=== PATIENT | male | born 1955 | race Caucasian/White ===

== ENCOUNTER 2017-11-07 10:00 | Outpatient (RCR) | payer OTHER, SELFPAY | END 2017-11-07 10:30 | disposition home or self-care (01) | LOC: PT 10:00 | PROVIDERS: Family Provider Family Medicine; PCP Family Medicine; Visit Provider Orthopaedic Surgery | DX: S76.111D Strain of right quadriceps muscle, fascia and tendon, subsequent encounter (principal); M22.41 Chondromalacia patellae, right knee | CPT/HCPCS: 97014 ×3; 97110 ×3; 97161; G0283 ==

== ENCOUNTER → 2018-09-07 09:47 | Outpatient (CLI) | payer OTHER, SELFPAY ==
[2018-09-07 12:15] LABS: Absolute Lymphocyte Count 1.76 X10^3/ul (0.83-4.51); Absolute Neutrophil Count 1.7 X10^3/uL (2.0-7.7); Basophil# 0.03 X10^3/uL; Basophil% 0.7 % (0-1); Eosinophil# 0.35 X10^3/uL; Eosinophils% 8.1 % (0-5); Hematocrit 42.6 % (40-54); Hemoglobin 13.8 g/dl (13.0-16.5); Lymphocyte # 1.76 X10^3/ul (4.0); Lymphocyte % 40.6 % (19-41); Mean Corp Hgb Conc 32.4 g/gl (32-36); Mean Corpuscular Hgb 29.4 pg (27.0-32.0); Mean Corpuscular Volume 90.6 fL (80-94); Mean Platelet Vol. 10.2 fl (6.2-12.0); Monocyte# 0.49 X10^3/uL; Monocyte% 11.3 % (0-10); Neutrophil # 1.69 X10^3/uL (2.7-7.7); Neutrophil % 39.1 % (47-70); Platelet Count 201 K/mm3 (150-450); RBC Distribution Width CV 13.1 % (11.6-14.6); RBC Distribution Width SD 43.3 fl (35.1-43.9); White Blood Count 4.3 K/mm3 (4.4-11.0)
[2018-09-07 12:17] LABS: Color, Urine Yellow (Yellow); Glucose, Dipstick Normal (Normal); Ketone-Dipstick Negative (Negative); Leukocyte Esterase-Dipstick Negative /ul (Negative); Nitrite-Dipstick Negative (Negative); Occult Blood-Urine Negative /ul (Negative); Protein-Dipstick Negative (Negative); Urine Bilirubin Dipstick Negative (Negative); Urine Clarity Clear (Clear); Urine Urobilinogen Normal (Normal)
[2018-09-07 12:22] LABS: POSITIVE COUNT NO; POSITIVE DIFFERENTIAL NO; POSITIVE MORPHOLOGY NO
[2018-09-07 12:44] LABS: ALB/GLOB Ratio 1.2 RATIO (0.9-2.4); AST(SGOT) 23 U/L (15-37); Alanine Aminotransfer ALT/SGPT 32 U/L (16-61); Albumin, Serum 3.8 g/dL (3.2-5.0); Alkaline Phosphatase 85 U/L (45-117); Anion Gap 6 (5-15); BUN 20 mg/dL (7-18); BUN/Creat Ratio 18.9 RATIO (10-20); Calcium,Total 8.8 mg/dL (8.5-10.1); Chloride 104 mmol/L (98-107); Cholesterol 190 mg/dL (200); Creatinine, Serum 1.06 mg/dL (0.70-1.30); EST Glomerular Filtration Rate 75 mL/min (>60); Est Glom Filt Rate - Afr Amer 90 mL/min (>60); Globulin 3.2 g/dL (2.2-4.2); Glucose 78 mg/dL (74-106); High Density Lipoprotein 56 mg/dL; PSA,Total - Annual Screen 0.26 ng/mL (0.00-4.00); Potassium 4.7 mmol/L (3.5-5.1); Sodium Level 142 mmol/L (136-145); Triglycerides 116 mg/dL; Very Low Density Lipoprotein 23 mg/dL (5-40)
== END ==
PROVIDERS: Family Provider Family Medicine; PCP Family Medicine; Referring Provider Family Medicine; Visit Provider Family Medicine
DX: Z00.00 Encounter for general adult medical examination without abnormal findings (principal); Z12.5 Encounter for screening for malignant neoplasm of prostate; I10 Essential (primary) hypertension
CPT/HCPCS: 36415; 80053; 80061; 81002; 84153; 85025; G0103

== ENCOUNTER → 2019-09-22 11:08 | Outpatient (CLI) | payer MEDICARE, OTHER, SELFPAY ==
[2019-09-22 12:27] LABS: Absolute Lymphocyte Count 1.64 X10^3/uL (0.83-4.51); Absolute Neutrophil Count 1.6 X10^3/uL (2.0-7.7); Basophil# 0.03 X10^3/uL; Basophil% 0.8 % (0-1); Eosinophil# 0.19 X10^3/uL; Eosinophils% 4.8 % (0-5); Hematocrit 39.5 % (40-54); Hemoglobin 12.7 g/dL (13.0-16.5); Lymphocyte # 1.64 X10^3/ul (4.0); Lymphocyte % 41.7 % (19-41); Mean Corp Hgb Conc 32.2 g/dL (32-36); Mean Corpuscular Hgb 29.1 pg (27.0-32.0); Mean Corpuscular Volume 90.4 fL (80-94); Mean Platelet Vol. 9.7 fl (6.2-12.0); Monocyte# 0.46 X10^3/uL; Monocyte% 11.7 % (0-10); NRBC Flagged by Analyzer 0 % (0-5); Neutrophil % 40.7 % (47-70); Platelet Count 204 K/mm3 (150-450); RBC Distribution Width SD 42.9 fl (35.1-43.9); Red Blood Count 4.37 M/mm3 (4.6-6.2); White Blood Count 3.9 K/mm3 (4.4-11.0)
[2019-09-22 12:30] LABS: Color, Urine Yellow (Yellow); Glucose, Dipstick Normal (Normal); Ketone-Dipstick Negative (Negative); Leukocyte Esterase-Dipstick Negative /ul (Negative); Nitrite-Dipstick Negative (Negative); Occult Blood-Urine Negative /ul (Negative); Protein-Dipstick Negative (Negative); Urine Bilirubin Dipstick Negative (Negative); Urine Clarity Sl. Cloudy (Clear); Urine Urobilinogen Normal (Normal)
[2019-09-22 12:56] LABS: ALB/GLOB Ratio 1.3 RATIO (0.9-2.4); AST(SGOT) 22 U/L (15-37); Alanine Aminotransfer ALT/SGPT 30 U/L (16-61); Albumin, Serum 3.9 g/dL (3.2-5.0); Alkaline Phosphatase 77 U/L (45-117); Anion Gap 10 (5-15); BUN 22 mg/dL (7-18); BUN/Creat Ratio 19.3 RATIO (10-20); Calcium,Total 8.8 mg/dL (8.5-10.1); Chloride 104 mmol/L (98-107); Cholesterol 188 mg/dL (200); Creatinine, Serum 1.14 mg/dL (0.70-1.30); EST Glomerular Filtration Rate 68 mL/min (>60); Est Glom Filt Rate - Afr Amer 83 mL/min (>60); Globulin 3.1 g/dL (2.2-4.2); Glucose 81 mg/dL (74-106); High Density Lipoprotein 60 mg/dL; PSA,Total - Annual Screen 0.22 ng/mL (0.00-4.00); Potassium 4.4 mmol/L (3.5-5.1); Sodium Level 141 mmol/L (136-145); Triglycerides 78 mg/dL; Very Low Density Lipoprotein 16 mg/dL (5-40)
== END ==
PROVIDERS: Family Provider Family Medicine; PCP Family Medicine; Referring Provider Family Medicine; Visit Provider Family Medicine
DX: Z00.00 Encounter for general adult medical examination without abnormal findings (principal); Z12.5 Encounter for screening for malignant neoplasm of prostate
CPT/HCPCS: 36415; 80053; 80061; 81002; 84153; 85025; G0103

== ENCOUNTER → 2020-09-25 09:53 | Outpatient (CLI) | payer MEDICARE, OTHER, SELFPAY ==
[2020-09-25 12:25] LABS: Hematocrit 42.9 % (40-54); Hemoglobin 13.6 g/dL (13.0-16.5); Mean Corp Hgb Conc 31.7 g/dL (32-36); Mean Corpuscular Hgb 29.2 pg (27.0-32.0); Mean Corpuscular Volume 92.1 fL (80-94); Mean Platelet Vol. 10.2 fl (6.2-12.0); Platelet Count 223 K/mm3 (150-450); RBC Distribution Width SD 43.7 fl (35.1-43.9); Red Blood Count 4.66 M/mm3 (4.6-6.2); White Blood Count 4.6 K/mm3 (4.4-11.0)
[2020-09-25 13:24] LABS: ALB/GLOB Ratio 1.2 RATIO (0.9-2.4); AST(SGOT) 23 U/L (15-37); Alanine Aminotransfer ALT/SGPT 28 U/L (16-61); Albumin, Serum 3.9 g/dL (3.2-5.0); Alkaline Phosphatase 98 U/L (45-117); Anion Gap 4 (5-15); BUN 19 mg/dL (7-18); BUN/Creat Ratio 16.8 RATIO (10-20); Calcium,Total 9.3 mg/dL (8.5-10.1); Chloride 107 mmol/L (98-107); Cholesterol 192 mg/dL (200); Creatinine, Serum 1.13 mg/dL (0.70-1.30); EST Glomerular Filtration Rate 69 mL/min (>60); Est Glom Filt Rate - Afr Amer 83 mL/min (>60); Globulin 3.2 g/dL (2.2-4.2); Glucose 92 mg/dL (74-106); High Density Lipoprotein 66 mg/dL; PSA,Total - Annual Screen 1.06 ng/mL (0.00-4.00); Potassium 4.3 mmol/L (3.5-5.1); Protein, Total 7.1 g/dL (6.4-8.2); Sodium Level 141 mmol/L (136-145); Triglycerides 105 mg/dL; Very Low Density Lipoprotein 21 mg/dL (5-40)
== END ==
PROVIDERS: PCP Family Medicine; Visit Provider Family Medicine
DX: Z00.00 Encounter for general adult medical examination without abnormal findings (principal); I10 Essential (primary) hypertension; Z12.5 Encounter for screening for malignant neoplasm of prostate
CPT/HCPCS: 36415; 80053; 80061; 84153; 85027; G0103

== ENCOUNTER 2020-11-25 14:50 | Inpatient (IN) | payer MEDICARE, OTHER, SELFPAY ==
[2020-11-25 14:50] VITALS: BP 169/88; PULSE 77; RESP 18; TEMP 35.9; O2SAT 99; BMI 25.4
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
[2020-11-25] MEDS: Morphine 4 MG/ML Syringe IV ×2 (15:14→16:46)
[2020-11-25] MEDS: Ondansetron 4 MG/2 ML Vial IV (15:14)
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
--- NOTE | 2020-11-25 15:30 | EKG12_ITS ---
Test Reason : LOWER EXTREM Blood Pressure : / mmHG Vent. Rate : 079 BPM Atrial Rate : 079 BPM P-R Int : 150 ms QRS Dur : 096 ms QT Int : 404 ms P-R-T Axes : 064 051 046 degrees QTc Int : 463 ms Sinus rhythm with Premature atrial complexes in a pattern of bigeminy Otherwise normal ECG Confirmed by SYED BERMUDEZ, PETER ([id number]), news editor LUIS AGUILAR ([id number]) on 11/27/2020 10:27:56 AM Referred By: BRENDA Confirmed By:PETER LYNCH MD
[2020-11-25 15:51] LABS: Absolute Lymphocyte Count 1.68 X10^3/uL (0.83-4.51); Absolute Neutrophil Count 5.8 X10^3/uL (2.0-7.7); Basophil# 0.04 X10^3/uL; Basophil% 0.5 % (0-1); Eosinophil# 0.16 X10^3/uL; Eosinophils% 1.9 % (0-5); Hematocrit 40.8 % (40-54); Hemoglobin 13.1 g/dL (13.0-16.5); Lymphocyte # 1.68 X10^3/ul (4.0); Lymphocyte % 20.1 % (19-41); Mean Corp Hgb Conc 32.1 g/dL (32-36); Mean Corpuscular Volume 90.5 fL (80-94); Mean Platelet Vol. 9.5 fl (6.2-12.0); Monocyte# 0.62 X10^3/uL; Monocyte% 7.4 % (0-10); NRBC Flagged by Analyzer 0 % (0-5); Neutrophil # 5.81 X10^3/uL (2.7-7.7); Neutrophil % 69.6 % (47-70); Platelet Count 221 K/mm3 (150-450); RBC Distribution Width SD 43.2 fl (35.1-43.9); Red Blood Count 4.51 M/mm3 (4.6-6.2); White Blood Count 8.4 K/mm3 (4.4-11.0)
[2020-11-25 15:55] LABS: International Normalized Ratio 1.1; Partial Thromboplast Time 25.2 Seconds (24.1-36.2); Prothrombin Time (Protime)PT. 13.8 SECONDS (11.7-14.9)
[2020-11-25 16:01] LABS: Anion Gap 5 (5-15); BUN 23 mg/dL (7-18); BUN/Creat Ratio 18.7 RATIO (10-20); Calcium,Total 9.2 mg/dL (8.5-10.1); Chloride 106 mmol/L (98-107); Creatinine, Serum 1.23 mg/dL (0.70-1.30); EST Glomerular Filtration Rate 62 mL/min (>60); Est Glom Filt Rate - Afr Amer 76 mL/min (>60); Estimated Creatinine Clearance 62.92 ml/min; Glucose 100 mg/dL (74-106); Potassium 4.2 mmol/L (3.5-5.1); Sodium Level 140 mmol/L (136-145)
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
--- NOTE | 2020-11-25 16:49 | NURSING ---
MED SURG JOPPERI HIP FX
[2020-11-25 16:50] VITALS: BP 155/82; PULSE 85; RESP 16; O2SAT 98
[2020-11-25 16:52] VITALS: BP 155/82; PULSE 65; RESP 16; TEMP 36.9; O2SAT 97
[2020-11-25 17:28] VITALS: BMI 25.9
[2020-11-25 17:36] VITALS: BMI 26.0
[2020-11-25 19:42] VITALS: BP 160/76; PULSE 88; RESP 16; TEMP 37.2; O2SAT 96
[2020-11-25] MEDS: oxyCODONE 5 MG Tablet 10 MG PO (19:46)
[2020-11-25 20:37] VITALS: BP 151/65; PULSE 73; RESP 15; TEMP 37.2; O2SAT 94; BMI 25.8
[2020-11-25 22:00] VITALS: RESP 15
[2020-11-25] MEDS: Morphine 2 MG/ML Syringe IV (22:43)
[2020-11-25] MEDS: 0.9% Saline Lock 10 ML Syringe IV (22:46)
[2020-11-26] VITALS (14 sets, daily range): BP systolic 116–170; BP diastolic 38–70; PULSE 68–83; RESP 15–18; TEMP 36.2–37.2; O2SAT 94–97; BMI 26.0
[2020-11-26] MEDS: 0.9% Normal Saline 1,000 ML 150 ML IV (01:00)
[2020-11-26] MEDS: Morphine 2 MG/ML Syringe IV ×2 (02:22→07:16)
--- NOTE | 2020-11-26 04:37 | NURSING ---
PT REPORTS THE OXYIR WAS NOT EFFECTIVE AT ALL. PT PREFERS MORPHINE, REPORTS IT IS EFFECTIVE FOR LEFT HIP PAIN
[2020-11-26 04:59] LABS: Absolute Lymphocyte Count 1.28 X10^3/uL (0.83-4.51); Absolute Neutrophil Count 5.8 X10^3/uL (2.0-7.7); Basophil# 0.03 X10^3/uL; Basophil% 0.4 % (0-1); Eosinophil# 0.08 X10^3/uL; Hematocrit 37.3 % (40-54); Hemoglobin 12.1 g/dL (13.0-16.5); Lymphocyte # 1.28 X10^3/ul (4.0); Lymphocyte % 16.4 % (19-41); Mean Corp Hgb Conc 32.4 g/dL (32-36); Mean Corpuscular Hgb 28.7 pg (27.0-32.0); Mean Corpuscular Volume 88.6 fL (80-94); Mean Platelet Vol. 9.3 fl (6.2-12.0); Monocyte# 0.58 X10^3/uL; Monocyte% 7.4 % (0-10); NRBC Flagged by Analyzer 0 % (0-5); Neutrophil % 74.5 % (47-70); Platelet Count 189 K/mm3 (150-450); RBC Distribution Width CV 12.9 % (11.6-14.6); RBC Distribution Width SD 42.1 fl (35.1-43.9); Red Blood Count 4.21 M/mm3 (4.6-6.2); White Blood Count 7.8 K/mm3 (4.4-11.0)
[2020-11-26 05:12] LABS: Anion Gap 5 (5-15); BUN 21 mg/dL (7-18); BUN/Creat Ratio 18.9 RATIO (10-20); Calcium,Total 8.2 mg/dL (8.5-10.1); Chloride 104 mmol/L (98-107); Creatinine, Serum 1.11 mg/dL (0.70-1.30); EST Glomerular Filtration Rate 70 mL/min (>60); Est Glom Filt Rate - Afr Amer 85 mL/min (>60); Estimated Creatinine Clearance 69.72 ml/min; Glucose 105 mg/dL (74-106); Potassium 4.3 mmol/L (3.5-5.1); Sodium Level 137 mmol/L (136-145)
--- NOTE | 2020-11-26 07:17 | NURSING ---
PT PREFERS MORPHINE FOR LEFT HIP PAIN. REPORTS THE OXYIR IS NOT EFFECTIVE.
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
[2020-11-26] MEDS: Cefazolin 2 GM in 0.9% Normal Saline 100 ML IV (07:55)
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
[2020-11-26] MEDS: Lactated Ringers 1,000 ML 100 ML IV (10:00)
[2020-11-26] MEDS: Cefazolin 1 GM/50 ML BAG IV ×2 (10:15→17:50)
[2020-11-26] MEDS: Lactated Ringers 1,000 ML 75 ML IV ×2 (13:55→16:55)
[2020-11-26] MEDS: proMETHazine 25 MG Tablet PO (13:55)
[2020-11-26] MEDS: Acetaminophen 500 MG Tablet 1000 MG PO ×2 (13:56→21:57)
[2020-11-26] MEDS: Losartan Potassium 50 MG Tablet PO (13:58)
--- NOTE | 2020-11-26 16:03 | PN_ITS ---
Patient Problems: Active and Suspected Problems (Last Updated 11/25/20 @ 16:[address] Edis Chavez, DO) Hip fracture (Acute) Subjective: Patient was seen and examined today, he underwent surgery today for his left hip fracture, patient underwent a left hip hemiarthroplasty. Postop patient is complaining of some nausea but is overall doing well. - Physical Exam Vitals/I&O's: Vital Signs Temp Pulse Resp BP Pulse Ox 98.0 F 79 18 134/63 H 97 11/26/20 14:39 11/26/20 14:39 11/26/20 14:39 11/26/20 14:39 11/26/20 14:39 Oxygen Delivery Method Room Air Weight: 84.1 kg Body Mass Index (BMI) 25.8 Intake and Output for Last 24 Hours 11/24/20 11/25/20 11/26/20 23:59 23:59 23:59 Intake Total 2071.67 / 2071.67 Output Total 1250 / 1250 Balance 821.67 / 821.67 General: Alert, Oriented x3, Cooperative, No apparent distress, Well developed HEENT: Atraumatic, PERRLA, EOMI, Normocephalic Oral: Moist Mucosa Neck: Supple, No JVD, Trachea Midline, Thyroid Normal Size and Texture Lungs: Clear to auscultation, Normal air movement, No rhonchi, No wheeze, No rales Cardiovascular: Regular rate, Regular Rhythm, Normal S1, Normal S2, No murmurs, PMI Normal, No rub noted, No Gallop Abdomen: Bowel Sounds Present, Soft, Non Tender, Non-Distended Extremities: No clubbing, No cyanosis, Capillary Refill Less than 3 Seconds Skin: No rashes, No breakdown Neurological: Cranial nerves II-XII grossly intact, Neuro grossly intact, Sens ory exam intact to light touch and pain, Coordination normal Psych/Mental Status: Normal Affect, Appropriate, Alert and oriented to time, place, person, mood and affect Microbiology Past 72 Hours 11/25/20 15:38 Mucosa - Nose SARS-CoV-2 Antigen (Rapid) - Final Laboratory Results 11/26/20 04:35: WBC 7.8, RBC 4.21 L, Hgb 12.1 L, Hct 37.3 L, MCV 88.6, MCH 28.7, MCHC 32.4, RDW Std Deviation 42.1, RDW Coeff of Jose 12.9, Plt Count 189, MPV 9.3, Immature Gran % (Auto) 0.300, Neut % (Auto) 74.5 H, Lymph % (Auto) 16.4 L, [place] % (Auto) 7.4, Eos % (Auto) 1.0, Baso % (Auto) 0.4, Absolute Neuts (auto) 5.8, Absolute Lymphs (auto) 1.28, Nucleated RBC % 0 11/26/20 04:35: Sodium 137, Potassium 4.3, Chloride 104, Carbon Dioxide 28.0, Anion Gap 5, BUN 21 H, Creatinine 1.11, Estim Creat Clear Calc 69.72, Est GFR (MDRD) Af Amer 85, Est GFR (MDRD) Non-Af 70, BUN/Creatinine Ratio 18.9, Glucose 105, Calcium 8.2 L 11/26/20 04:35: Blood Type O POSITIVE, Antibody Screen NEGATIVE Current Medications Acetaminophen (Acetaminophen 500 Mg Tablet) 1,000 mg PO Q8 [facility] Last Admin: 11/26/20 13:56 Dose: 1,000 mg Documented by: Apixaban (Apixaban 2.5 Mg Tablet) 2.5 mg PO BID [facility] Hydromorphone HCl (Hydromorphone 0.5 Mg/0.5 Ml Syringe) 0.5 mg IV Q2H PRN PRN PRN Reason: Pain Score 6-10 Cefazolin Sodium () 1 gm in 50 mls @ 100 mls/hr IV Q8H [facility] Stop: 11/27/20 02:29 Last Infusion: 11/26/20 10:45 Dose: Infused Documented by: Lactated Ringer's () 1,000 mls @ 100 mls/hr IV .Q10H [facility] Last Admin: 11/26/20 13:55 Dose: 75 mls/hr Documented by: Ketorolac Tromethamine (Ketorolac 15 Mg/Ml Vial) 15 mg IV Q6H PRN PRN PRN Reason: Pain Score 1-5 Stop: 11/28/20 09:36 Losartan Potassium (Losartan Potassium 50 Mg Tablet) 50 mg PO DAILY [facility] Last Admin: 11/26/20 13:58 Dose: 50 mg Documented by: Ondansetron HCl (Ondansetron 4 Mg/2 Ml Vial) 4 mg IV Q6H PRN PRN PRN Reason: NAUSEA/VOMITING Oxycodone HCl (Oxycodone 5 Mg Tablet) 5 - 10 mg PO Q4H PRN PRN PRN Reason: Pain Score 4-10 Senna/Docusate Sodium (Senna/Docusate Sodium 1 Tablet) 2 tablet PO BID [facility] Sodium Chloride (0.9% Saline Lock 10 Ml Syringe) 10 - 40 ml IV UD PRN PRN Reason: SALINE FLUSH Last Admin: 11/25/20 22:46 Dose: 10 ml Documented by: Medical Necessity - Tobacco Use Smoking Status: Never smoker Tobacco Use: Non-smoker Assessment/Plan All Active Problems (Last Updated 11/25/20 @ 16:[address] Edis Chavez, DO) Hip fracture (Acute) #1 left hip femoral neck fracture-postop day 0 left hip King arthroplasty- patient will be seen by PT and OT, he plans on being discharged to home when stable. Inpatient E&M: 30770 Subs Hosp L2
[2020-11-26] MEDS: Ondansetron 4 MG/2 ML Vial IV (17:29)
[2020-11-26] MEDS: APIXABAN 2.5 MG TABLET PO (21:56)
[2020-11-26] MEDS: Senna/Docusate Sodium 1 Tablet 2 TABLET PO (21:58)
[2020-11-27] MEDS: Cefazolin 1 GM/50 ML BAG IV (02:29)
[2020-11-27 03:00] VITALS: BMI 26.0
[2020-11-27 03:43] VITALS: BP 121/56; PULSE 66; RESP 15; TEMP 37.1; O2SAT 95
[2020-11-27 04:00] VITALS: RESP 15
[2020-11-27 04:57] LABS: Hematocrit 32.5 % (40-54); Hemoglobin 10.7 g/dL (13.0-16.5); Mean Corp Hgb Conc 32.9 g/dL (32-36); Mean Corpuscular Hgb 29.2 pg (27.0-32.0); Mean Corpuscular Volume 88.6 fL (80-94); Mean Platelet Vol. 9.5 fl (6.2-12.0); Platelet Count 166 K/mm3 (150-450); RBC Distribution Width CV 12.7 % (11.6-14.6); RBC Distribution Width SD 41.3 fl (35.1-43.9); Red Blood Count 3.67 M/mm3 (4.6-6.2); White Blood Count 8.7 K/mm3 (4.4-11.0)
[2020-11-27 05:10] LABS: Anion Gap 5 (5-15); BUN 18 mg/dL (7-18); Calcium,Total 7.7 mg/dL (8.5-10.1); Chloride 104 mmol/L (98-107); Creatinine, Serum 1.06 mg/dL (0.70-1.30); EST Glomerular Filtration Rate 74 mL/min (>60); Est Glom Filt Rate - Afr Amer 90 mL/min (>60); Estimated Creatinine Clearance 73.01 ml/min; Glucose 95 mg/dL (74-106); Potassium 4.2 mmol/L (3.5-5.1); Sodium Level 136 mmol/L (136-145)
[2020-11-27] MEDS: Acetaminophen 500 MG Tablet 1000 MG PO (05:40)
[2020-11-27 07:48] VITALS: BP 140/62; PULSE 67; RESP 16; TEMP 36.7; O2SAT 98
--- NOTE | 2020-11-27 07:54 | PCM.PN.ORT ---
Patient Problems: Active and Suspected Problems (Last Updated 11/25/20 @ 16:[address] Edis Chavez, DO) Hip fracture (Acute) Subjective: doing well pain controlled. c/o dorsum left foot pain. also requesting food as he has not progressed from clear liquids. - Physical Exam Vitals/I&O's: Vital Signs Temp Pulse Resp BP Pulse Ox 98.0 F 67 16 140/62 H 98 11/27/20 07:48 11/27/20 07:48 11/27/20 07:48 11/27/20 07:48 11/27/20 07:48 Oxygen Delivery Method Room Air Weight: 185 lb 6.54 oz Body Mass Index (BMI) 25.8 Intake and Output for Last 24 Hours 11/25/20 11/26/20 11/27/20 23:59 23:59 23:59 Intake Total 3046.67 / 3046.67 1500 / 1500 Output Total 1974 1300 / 1300 Balance 1071.67 / 1071.67 200 / 200 General: Alert, Oriented x3, Cooperative, No apparent distress Extremities: - - Hip dressing clean dry and intact compartments soft neurovascular intact left lower extremity no ecchymosis or swelling dorsum of or plantar gray tender to palpation over fourth metatarsal Microbiology Past 72 Hours 11/25/20 15:38 Mucosa - Nose SARS-CoV-2 Antigen (Rapid) - Final Laboratory Results 11/27/20 04:35: WBC 8.7, RBC 3.67 L, Hgb 10.7 L, Hct 32.5 L, MCV 88.6, MCH 29.2, MCHC 32.9, RDW Std Deviation 41.3, RDW Coeff of Jose 12.7, Plt Count 166, MPV 9.5 11/27/20 04:35: Sodium 136, Potassium 4.2, Chloride 104, Carbon Dioxide 27.0, Anion Gap 5, BUN 18, Creatinine 1.06, Estim Creat Clear Calc 73.01, Est GFR (MDRD) Af Amer 90, Est GFR (MDRD) Non-Af 74, BUN/Creatinine Ratio 17.0, Glucose 95, Calcium 7.7 L Current Medications Acetaminophen (Acetaminophen 500 Mg Tablet) 1,000 mg PO Q8 [facility] Last Admin: 11/27/20 05:40 Dose: 1,000 mg Documented by: Apixaban (Apixaban 2.5 Mg Tablet) 2.5 mg PO BID [facility] Last Admin: 11/26/20 21:56 Dose: 2.5 mg Documented by: Hydromorphone HCl (Hydromorphone 0.5 Mg/0.5 Ml Syringe) 0.5 mg IV Q2H PRN PRN PRN Reason: Pain Score 6-10 Lactated Ringer's () 1,000 mls @ 100 mls/hr IV .Q10H [facility] Last Infusion: 11/27/20 06:15 Dose: Infused Documented by: Ketorolac Tromethamine (Ketorolac 15 Mg/Ml Vial) 15 mg IV Q6H PRN PRN PRN Reason: Pain Score 1-5 Stop: 11/28/20 09:36 Losartan Potassium (Losartan Potassium 50 Mg Tablet) 50 mg PO DAILY [facility] Last Admin: 11/26/20 13:58 Dose: 50 mg Documented by: Ondansetron HCl (Ondansetron 4 Mg/2 Ml Vial) 4 mg IV Q6H PRN PRN PRN Reason: NAUSEA/VOMITING Last Admin: 11/26/20 17:29 Dose: 4 mg Documented by: Oxycodone HCl (Oxycodone 5 Mg Tablet) 5 - 10 mg PO Q4H PRN PRN PRN Reason: Pain Score 4-10 Senna/Docusate Sodium (Senna/Docusate Sodium 1 Tablet) 2 tablet PO BID [facility] Last Admin: 11/26/20 21:58 Dose: 2 tablet Documented by: Sodium Chloride (0.9% Saline Lock 10 Ml Syringe) 10 - 40 ml IV UD PRN PRN Reason: SALINE FLUSH Last Admin: 11/25/20 22:46 Dose: 10 ml Documented by: Medical Necessity - Tobacco Use Smoking Status: Never smoker Tobacco Use: Non-smoker Assessment/Plan All Active Problems (Last Updated 11/25/20 @ 16:[address] Edis Chavez, DO) Hip fracture (Acute) PT OT weightbearing as tolerated left lower extremity Eliquis 2.5 mg twice daily for 3 weeks postop Oxycodone Rx will be sent with Roxannequviki to [facility] pharmacy Ok for discharge from orthopedic standpoint to home but will need social service to arrange outpatient physical therapy Dressing to stay clean dry and intact for 72 hours postop then may remove prior to first shower and clean with antibacterial soap and shower with warm water and reapply dry dressing daily. Follow-up in office 2 weeks Ice to left foot if symptoms worsen we will reevaluate
--- NOTE | 2020-11-27 08:00 | DCINST_ITS ---
Discharge Diet: No Restrictions Weight Bearing Status: Weight bearing as tolerated Keep extremity elevated above heart level: Operative Extremity Call your doctor if you observe: Shortness of breath Additional Instructions: Do not shower 72hrs. Begin daily showering warm water antibacterial soap postop day #3( 72hrs Post-operatively) and then daily. Leave the dressing on for 72 hours postoperatively then may remove prior to first shower and change dressing daily after this until no drainage for 2 consecutive days then may leave open to air. Follow hip precautions that were reviewed in hospital. Wear compression stockings, may remove at night. Start out patient physical therapy as directed in hospital. Follow prescriptions instructions do not take any other pain medication or differ dosing without consulting your physician. Do not take oral NSAIDs until blood thinner has been completed , then may begin the day after completion if needed . Call Dr. Lemos's office with any concerns. Allergies/Adverse Reactions: Allergies No Known Allergies Allergy (Verified 11/25/20 14:52) Medications to take at Discharge Valsartan [Diovan] 160 mg QHS 11/25/20 Acetaminophen [Tylenol Extra Strength] 1,000 mg PO Q6H PRN #100 tab 11/27/20 Apixaban [Eliquis] 2.5 mg PO BID #42 tab 11/27/20 Oxycodone [Oxyir] 5 mg PO Q4H PRN PRN #60 tablet 11/27/20 The following prescriptions were given: Apixaban [Eliquis] 2.5 mg PO BID #42 tab Transmission Status: Pending to [facility] Oxycodone [Oxyir] 5 mg PO Q4H PRN PRN #60 tablet PRN Reason: Pain Score 6-10 Transmission Status: Sent to [facility] Acetaminophen [Tylenol Extra Strength] 1,000 mg PO Q6H PRN #100 tab Transmission Status: Pending to [facility] Primary Care Physician: Stephane Silva MD [Primary Care Provider] - Test Results: Test results from this visit will be discussed in further detail at your follow- up appointment, if applicable. Please Follow Up With: Jeff Lemos DO When: 2 weeks
[2020-11-27] MEDS: Senna/Docusate Sodium 1 Tablet 2 TABLET PO (09:03)
[2020-11-27] MEDS: Losartan Potassium 50 MG Tablet PO (09:03)
[2020-11-27] MEDS: APIXABAN 2.5 MG TABLET PO (09:03)
--- NOTE | 2020-11-27 09:50 | CASEMGMT ---
TRISTAN HARO Face to Face with patient for initial transition planning/care coordination assessment. TRISTAN HARO introduced self and role at [facility]. Patient sitting in chair, alert and oriented. Patient willing to participate in assessment and is able to answer all questions appropriately. Care providers, pharmacy, and demographics verified. Patient wishes to discharge home and have outpatient therapy scheduled at [facility]. Patient states he has no further needs or concerns at this time. CM to follow for discharge planning needs that may arise. PCP: Ricardo Specialists: more Lemos Pharmacy: [facility] Insurance: [facility], Prescription Benefit: yes Living Will/HPOA: yes, Sheba Pinto LNOK: Living Arrangements: Patient lives with in a ranch styler home with 3 steps and grab bar to enter the home. Patient states he was independent at home prior to admission. Transportation: DME/HHC: Patient states has gotten him a walker and shower chair at home. Patient requesting [facility] for outpatient therapy. TRISTAN HARO call [facility] and scheduled patient for 11/28/2020 1000. TRISTAN HARO updated patient with appt. Disposition Plan: Patient to discharge home with family support and follow-up plans in place. Amanda MARTINEZ, RN, CM
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
--- NOTE | 2020-11-27 10:44 | PCM.DC ---
- Discharge Diagnoses Current Active Problems: Current Active and Chronic Problems (Last Updated 11/25/20 @ 16:[address] Edis Chavez DO) Hip fracture (Acute) You will use the following diet at home:: No restrictions Your food should be the consistency of: Regular Your liquids should be the consistency of: Regular/Thin Discharge Activity: May not drive while taking narcotic pain medications., Use Walker, - - Okay to shower 72 hours after surgery Weight Bearing Status: Weight bearing as tolerated Keep extremity elevated above heart level: Operative Extremity Call your doctor if you observe: Shortness of breath Allergies/Adverse Reactions: Allergies No Known Allergies Allergy (Verified 11/25/20 14:52) Medications to take at Discharge Valsartan [Diovan] 160 mg QHS 11/25/20 Acetaminophen [Tylenol Extra Strength] 1,000 mg PO Q6H PRN #100 tab 11/27/20 Apixaban [Eliquis] 2.5 mg PO BID #42 tab 11/27/20 Apixaban [Eliquis] 2.5 mg PO BID #42 tab 11/27/20 Oxycodone [Oxyir] 5 - 10 mg PO Q4H PRN PRN #20 tablet 11/27/20 Oxycodone [Oxyir] 5 mg PO Q4H PRN PRN #60 tab 11/27/20 The following prescriptions were given: Apixaban [Eliquis] 2.5 mg PO BID #42 tab Transmission Status: Received by [facility] Oxycodone [Oxyir] 5 mg PO Q4H PRN PRN #60 tab PRN Reason: Pain Score 6-10 Transmission Status: Received by [facility] Acetaminophen [Tylenol Extra Strength] 1,000 mg PO Q6H PRN #100 tab Transmission Status: Received by [facility] Primary Care Physician: Stephane Silva MD [Primary Care Provider] - Please follow up with your Primary Care Physician in: As needed Test Results: Test results from this visit will be discussed in further detail at your follow-up appointment, if applicable. Please Follow Up With: Jeff Lemos DO When: 2 weeks Please Follow Up With: [facility] When: Friday
[2020-11-27 10:47] VITALS: BMI 26.0
[2020-11-27 12:08] VITALS: BP 137/66; PULSE 70; RESP 18; TEMP 36.7; O2SAT 98
== END 2020-11-27 12:45 | disposition home or self-care (01) | DRG 522 ==
LOC: ED 15:11 → MS3 16:59
PROVIDERS: Orthopaedic Surgery; Emergency Provider Emergency Medicine; PCP Family Medicine; Visit Provider Internal Medicine
PROC: 0SRS0JZ Replacement of Left Hip Joint, Femoral Surface with Synthetic Substitute, Open Approach (ICD-10-PCS; CPT 27125; principal; 2020-11-26 08:00)
DX: S72.012A Unspecified intracapsular fracture of left femur, initial encounter for closed fracture (principal); S51.812A Laceration without foreign body of left forearm, initial encounter; V18.4XXA Pedal cycle driver injured in noncollision transport accident in traffic accident, initial encounter; Y93.55 Activity, bike riding; Y92.89 Other specified places as the place of occurrence of the external cause; I10 Essential (primary) hypertension
CPT/HCPCS: 71045; 73502; 80048; 85025; 85027; 85610; 85730; 86850; 86900; 86901; 87426; 93005; 97110; 97116; 97162; 97166; 97530; 97535; 99251; 99285; C1776; J7030; J7120; A4216; G0463; J2405

== ENCOUNTER 2020-12-26 11:00 | Outpatient (RCR) | payer MEDICARE, OTHER, SELFPAY ==
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
--- NOTE | 2020-12-26 14:57 | HP.PTREVAL_ITS ---
Dr. Jeff Lemos, DO, It has been my pleasure to treat SILVIO MAI over the last 9 visits for L hip hemiarhtroplasty. Please see the progress note below for an update on the physical therapy plan of care! Subjective: Pt. reports being 90% better overall. He has been able to ride his stationary bike for upto 40 min with no issues post PT. Pt. does report some tightness in his hip flexor region. He is walking without AD, with minial issues. He did have some mild soreness when he twisted hi leg getting into his car yesterday causing him to be a little sore today 11/26. Objective/Function: Overall Gene is doing well. Pt. has good ROM, he is back to riding a stationary bike without issues, and has improved strength. ROM: L hip- flexion 90deg mild tightness, HS length is 85deg, hip extension 15deg., abd 45deg, Did not test ER/IR. PT. has good equal squat mechanics, partial squating. MMT: 4+/5 throughout hip, 5/5 with rest of his strength of his LLE. Core fair. GAIT: Pt. ambulates without AD with good step length, he did have some initial antalgic pattern during L stance phase, but improved as his gait progressed. STAIRS: reciprocal pattern without use of AD. Plan Plan: Pt. is doing very well. He is to trial exercises on his own at this point in time. Pt. instructed to continue riding the stationary bike with increasing resistance and glute max/med strenthening. Pt. consents. I will keep the case open for a few weeks in case patient requires further PT. If I do not hear from him over the next few weeks I will DC back to physician. Goals Goal 1:: LTG: Pt. to be I with HEP. Goal Time Frame: 4-6 Weeks Goal Progress: Goal Met Goal 2:: STG: Pt. to sleep without increase in symptoms. Goal Time Frame: 2-4 Weeks Goal Progress: Goal Met Goal 3:: LTG: Pt. to have L hip AROM to 90deg flexion, 45deg abd and 10deg extension without increase in symptoms. Goal Time Frame: 4-6 Weeks Goal Progress: Goal Met Goal 4:: LTG: Pt. to ambulate with LRD with normal gait without increase in symptoms. Goal Time Frame: 4-6 Weeks Goal Progress: Goal Met Goal 5:: LTG: Pt. to complete all ADLs without increase in symptoms. Goal Time Frame: 4-6 Weeks Goal Progress: Goal Met Goal 6:: LTG: Pt. to negotiate steps with 1 HR with reciprocal pattern without increase in symptmoms. Goal Time Frame: 4-6 Weeks Goal Progress: Goal Met Anticipated Interventions Patient/Client Instruction: Educate patient on: Condition, Plan of Care, Risk Factors, Benefits of Fitness Program For the Purpose of:: To facilitate caregiver knowledge, To improve self manage ment, To prevent re-injury, To improve ability to perform tasks related to life management, To improve tolerance to ADL's Therapeutic Exercise to Include: Strength training, Power training, Endurance training, Balance training, Body mechanics, Postural training, Flexibilty training, Gait and locomotor training, Passive ROM, Active ROM For the Purpose of:: To decrease pain, To decrease swelling/inflammation, To increase ROM, To improve nutrient delivery to tissue, To increase oxygenation perfusion, To improve muscle performance and motor function, To improve ability to perform ADL's, To increase tolerance to activity/condition/position, To improve gait and locomotor functions, To improve health of tissue, To decrease soft tissue restriction, To increase flexibility/ROM, To improve endurance, To improve balance, To improve safety with gait Cryotherapy (ice pack, ice massage): Yes Thermo therapy (hot pack): Yes Vasopneumatic device: Yes For the Purpose of:: To decrease pain, To decrease swelling/inflammation Please do not hesitate to contact me at [phone] by phone or if you have questions or concerns regarding this new plan of care! Sincerely, Alex Giron DPT
--- NOTE | 2021-04-25 11:56 | HP.PT.NRP ---
SILVIO MAI was seen in my office for initial evaluation on 11/28/20. The following Plan of Care was established for this patient: Initial Frequency: 2x /Week Initial Duration: 6 Weeks Patient/Client Instruction: Educate patient on: Condition, Plan of Care, Risk Factors, Benefits of Fitness Program For the Purpose of:: To facilitate caregiver knowledge, To improve self management, To prevent re-injury, To improve ability to perform tasks related to life management, To improve tolerance to ADL's Therapeutic Exercise to Include: Strength training, Power training, Endurance training, Balance training, Body mechanics, Postural training, Flexibilty training, Gait and locomotor training, Passive ROM, Active ROM For the Purpose of:: To decrease pain, To decrease swelling/inflammation, To increase ROM, To improve nutrient delivery to tissue, To increase oxygenation perfusion, To improve muscle performance and motor function, To improve ability to perform ADL's, To increase tolerance to activity/condition/position, To improve gait and locomotor functions, To improve health of tissue, To decrease soft tissue restriction, To increase flexibility/ROM, To improve endurance, To improve balance, To improve safety with gait Cryotherapy (ice pack, ice massage): Yes Thermo therapy (hot pack): Yes Vasopneumatic device: Yes For the Purpose of:: To decrease pain, To decrease swelling/inflammation This patient was last seen in our office 12/26/20. Pertinent comments regarding their Physical therapy will appear below: Pt. was seen in PT for his hip liberty arthroplasty. He was doing very well at his last appointment. He was going to do his exercises on his own for a few weeks and follow up with PT if needed. He has not been seen in several months and will be DC from PT at this point in time. At this point I will be discontinuing this patient from physical therapy. I would be happy to see this patient again in the future if found appropriate by the physician. Thank you! Alex Giron DPT
== END 2020-12-26 19:00 | disposition home or self-care (01) ==
LOC: PT 11:00
PROVIDERS: PCP Family Medicine; Referring Provider Orthopaedic Surgery; Visit Provider Orthopaedic Surgery
DX: Z47.1 Aftercare following joint replacement surgery (principal); Z96.642 Presence of left artificial hip joint
CPT/HCPCS: 97110; 97161; 97164

== ENCOUNTER → 2021-09-26 09:17 | Outpatient (CLI) | payer MEDICARE, OTHER, SELFPAY ==
[2021-09-26 10:17] LABS: Absolute Lymphocyte Count 2.28 X10^3/uL (0.83-4.51); Absolute Neutrophil Count 1.7 X10^3/uL (2.0-7.7); Basophil# 0.04 X10^3/uL; Basophil% 0.8 % (0-1); Eosinophil# 0.42 X10^3/uL; Eosinophils% 8.6 % (0-5); Hematocrit 39.9 % (40-54); Lymphocyte # 2.28 X10^3/ul (0.83-4.51); Lymphocyte % 46.4 % (19-41); Mean Corp Hgb Conc 32.6 g/dL (32-36); Mean Corpuscular Hgb 29.1 pg (27.0-32.0); Mean Corpuscular Volume 89.5 fL (80-94); Mean Platelet Vol. 9.3 fl (6.2-12.0); Monocyte# 0.49 X10^3/uL; NRBC Flagged by Analyzer 0 % (0-5); Neutrophil # 1.67 X10^3/uL (2.7-7.7); Platelet Count 233 K/mm3 (150-450); Red Blood Count 4.46 M/mm3 (4.6-6.2); White Blood Count 4.9 K/mm3 (4.4-11.0)
[2021-09-26 11:22] LABS: ALB/GLOB Ratio 1.1 RATIO (0.9-2.4); AST(SGOT) 28 U/L (15-37); Alanine Aminotransfer ALT/SGPT 32 U/L (16-61); Albumin, Serum 3.7 g/dL (3.2-5.0); Alkaline Phosphatase 95 U/L (45-117); Anion Gap 6 (5-15); BUN 19 mg/dL (7-18); Calcium,Total 9.1 mg/dL (8.5-10.1); Chloride 106 mmol/L (98-107); Cholesterol 201 mg/dL (200); Creatinine, Serum 1.19 mg/dL (0.70-1.30); EST Glomerular Filtration Rate 65 mL/min (>60); Est Glom Filt Rate - Afr Amer 78 mL/min (>60); Globulin 3.3 g/dL (2.2-4.2); Glucose 91 mg/dL (74-106); High Density Lipoprotein 54 mg/dL; PSA,Total - Annual Screen 0.37 ng/mL (0.00-4.00); Potassium 4.7 mmol/L (3.5-5.1); Sodium Level 140 mmol/L (136-145); Triglycerides 97 mg/dL; Very Low Density Lipoprotein 19 mg/dL (5-40)
== END ==
PROVIDERS: PCP Family Medicine; Referring Provider Family Medicine; Visit Provider Family Medicine
DX: Z00.00 Encounter for general adult medical examination without abnormal findings (principal); I10 Essential (primary) hypertension; Z12.5 Encounter for screening for malignant neoplasm of prostate
CPT/HCPCS: 36415; 80053; 80061; 84153; 85025; G0103

== ENCOUNTER → 2023-11-19 | Outpatient (CLI) | payer MEDICARE, OTHER, SELFPAY ==
[2023-11-19 12:25] LABS: Absolute Lymphocyte Count 1.71 X10^3/uL (0.83-4.51); Absolute Neutrophil Count 2.5 X10^3/uL (2.0-7.7); Basophil# 0.04 X10^3/uL; Basophil% 0.7 % (0-1); Eosinophil# 0.45 X10^3/uL; Eosinophils% 8.4 % (0-5); Hemoglobin 13.2 g/dL (13.0-16.5); Lymphocyte # 1.71 X10^3/ul (0.83-4.51); Lymphocyte % 31.8 % (19-41); Mean Corp Hgb Conc 31.4 g/dL (32-36); Mean Corpuscular Hgb 29.4 pg (27.0-32.0); Mean Corpuscular Volume 93.5 fL (80-94); Mean Platelet Vol. 9.6 fl (6.2-12.0); Monocyte# 0.62 X10^3/uL; Monocyte% 11.5 % (0-10); NRBC Flagged by Analyzer 0 % (0-5); Neutrophil # 2.54 X10^3/uL (2.7-7.7); Neutrophil % 47.2 % (47-70); Platelet Count 254 K/mm3 (150-450); RBC Distribution Width CV 12.6 % (11.6-14.6); RBC Distribution Width SD 43.6 fl (35.1-43.9); Red Blood Count 4.49 M/mm3 (4.6-6.2); White Blood Count 5.4 K/mm3 (4.4-11.0)
[2023-11-19 12:41] LABS: ALB/GLOB Ratio 1.2 RATIO (0.9-2.4); AST(SGOT) 27 U/L (15-37); Alanine Aminotransfer ALT/SGPT 26 U/L (16-61); Albumin, Serum 3.9 g/dL (3.2-5.0); Alkaline Phosphatase 73 U/L (45-117); Anion Gap 7 (5-15); BUN 20 mg/dL (7-18); BUN/Creat Ratio 18.2 RATIO (10-20); Calcium,Total 8.7 mg/dL (8.5-10.1); Chloride 106 mmol/L (98-107); Cholesterol 216 mg/dL (200); EST Glomerular Filtration Rate 70 mL/min (>60); Est Glom Filt Rate - Afr Amer 85 mL/min (>60); Globulin 3.3 g/dL (2.2-4.2); Glucose 90 mg/dL (74-106); High Density Lipoprotein 40 mg/dL; PSA,Total - Annual Screen 0.37 ng/mL (0.00-4.00); Potassium 4.4 mmol/L (3.5-5.1); Protein, Total 7.2 g/dL (6.4-8.2); Sodium Level 141 mmol/L (136-145); Triglycerides 246 mg/dL; Very Low Density Lipoprotein 49 mg/dL (5-40)
== END | disposition home or self-care (01) ==
LOC: BFHLAB 09:14
PROVIDERS: PCP Family Medicine; Visit Provider Family Medicine
DX: I10 Essential (primary) hypertension (principal); Z12.5 Encounter for screening for malignant neoplasm of prostate
CPT/HCPCS: 36415; 80053; 80061; 84153; 85025; G0103

== ENCOUNTER → 2023-12-08 | Outpatient (CLI) | payer MEDICARE, OTHER, SELFPAY ==
--- NOTE | 2023-12-08 13:22 | STRESSREP ---
Stress Test Report Exercise myocardial perfusion stress test. 68-year-old man with a history of chest discomfort Stress protocol: Resting EKG demonstrates sinus bradycardia with a rate of 49 bpm resting blood pressure is 144/72 mmHg. The patient exercised according to the regular Mehran protocol for a total duration of 8 minutes attaining a maximum heart rate of 139 bpm which was 92% of maximum predicted heart rate; the maximum workload was 10.1 metabolic equivalents. At rest there were no ST or T wave changes noted to suggest ischemia and at peak exercise upsloping ST changes only were noted which did not meet the criteria for ischemia. No clinical angina was noted the test was terminated due to the target heart rate being achieved/fatigue. The peak blood pressure was 202/72 mmHg. Rate-pressure product was 23,600. This was a hypertensive response to exercise noted. Myocardial perfusion protocol. 13.9 mCi of technetium 99m sestamibi was injected at rest. The patient exercised according to regular Mehran protocol for total duration of 8 minutes and at peak exercise 43.1 mCi of technetium 99m sestamibi was injected stress images were obtained stress and rest images were reconstructed in comparing the short axis vertical long and horizontal long axis. Gated images were also obtained. Perfusion SPECT analysis: Review of the stress images demonstrate normal uptake of tracer noted in all areas of the myocardium. The resting images similarly demonstrate normal uptake of tracer noted in all areas of the myocardium. No areas of reversibility are noted to suggest ischemia no previous infarct was noted. Gated SPECT analysis: The gated ejection fraction is 58%. Conclusion: Normal exercise myocardial perfusion stress test at a high workload Preserved ejection fraction.
== END | disposition home or self-care (01) ==
LOC: CVS 06:26
PROVIDERS: PCP Family Medicine; Referring Provider Family Medicine; Visit Provider Family Medicine
DX: R06.09 Other forms of dyspnea (principal)
CPT/HCPCS: 78452; 93017; A9500; A4216

== ENCOUNTER → 2025-05-17 | Outpatient (CLI) | payer MEDICARE, OTHER, SELFPAY | END | disposition home or self-care (01) | LOC: LABSPEC 11:23 | PROVIDERS: PCP Family Medicine; Visit Provider Physician Assistant | DX: R39.15 Urgency of urination (principal) | CPT/HCPCS: 87086 ==